=== PATIENT | female | born 1950 ===

== ENCOUNTER → 2016-07-16 | Outpatient (CLI) | payer BC ==
[~2016-07-16] MED LIST: CMD1 PO; FRRG PO; LISI-729 PO; OXYC-57 PO; OXYSR10 PO; PRAV20TA PO
== END | disposition home or self-care (01) ==
LOC: C.PAPS 09:52
PROVIDERS: ATTEND Obstetrics & Gynecology
DX: Z01.419 Encounter for gynecological examination (general) (routine) without abnormal findings (principal)